=== PATIENT | male | born 1965 | race Two or more races ===

== ENCOUNTER 2022-12-10 05:37 | Emergency (ER) | payer OTHER ==
[~2022-12-10] VITALS: Ht 177.8 cm; Wt 105.0 kg
[2022-12-10 05:37] VITALS: BP 0/0; PULSE 0; RESP 0; O2SAT 0
[2022-12-10] MEDS ORDERED: EPINEPHrine HCL 1 MG/10 ML SYRG IV ONE (05:38)
[2022-12-10] MEDS ORDERED: SODIUM BICARBONATE 8.4% INJ 50ML SYRINGE IV ONE (05:38)
== END 2022-12-10 06:41 ==
LOC: ER 05:37 → EDBD 05:37 → ER 06:41
DX: I46.9 Cardiac arrest, cause unspecified (principal); V98.8XXA Other specified transport accidents, initial encounter; Y93.89 Activity, other specified; Y92.89 Other specified places as the place of occurrence of the external cause; Y99.8 Other external cause status
CPT/HCPCS: 31500; 92950; 99285; J0171